=== PATIENT | female | born 1990 | race Caucasian/White ===

== ENCOUNTER 2019-12-25 14:36 | Emergency (ER) | payer OTHER, SELFPAY ==
[2019-12-25 14:42] VITALS: BP 141/86; PULSE 76; RESP 16; TEMP 36.7; O2SAT 98; BMI 26.5
[2019-12-25 17:36] VITALS: BP 109/64; PULSE 61; RESP 16; O2SAT 99
--- NOTE | 2019-12-25 18:48 | ED.WOUNDLAC ---
HPI - Wound/Laceration <JOSE Obregon - Last Filed: 12/25/19 21:37> General Chief Complaint: Wound/Laceration Stated Complaint: incision is opening back up Time Seen by Provider: 12/25/19 16:29 Source: patient Mode of arrival: Ambulatory History of Present Illness HPI narrative: 29yo female presents emergency department complaining of a small area of oozing from her suture line from a breast reduction. She states her breast reduction was done in Aug 2019 without complications. She noticed multiple keloid formations. However, she noticed a small scab along the suture line. The scab fell off and now she has noted serosanguineous drainage from the area. She denies any increased redness, significant tenderness, bleeding, purulent drainage, fevers, chills, nausea, vomiting, diarrhea, or other concerns. She denies any nipple discharge. She was worried that her new bras may have irritated the area. She is also concerned for infection. Related Data Previous Rx's Medication Instructions Recorded mupirocin 1 applictn TOP BID #22 gram 12/25/19 Allergies Allergy/AdvReac Type Severity Reaction Status Date / Time No Known Drug Allergies Allergy Verified 12/25/19 14:42 Review of Systems <JOSE Obregon - Last Filed: 12/25/19 21:37> Review of Systems Narrative: REVIEW OF SYSTEMS: GENERAL: Denies fever or chills. HENT: Denies head trauma. EYE: Denies double vision or vision loss. CARDIOVASCULAR: Denies syncope. MUSCULOSKELETAL: Denies weakness, or deformities. INTEGUMENTARY: Complains of wound under right breast, see HPI. NEURO: Denies numbness or tingling. Patient History <OJSE Obregon - Last Filed: 12/25/19 21:37> Medical History No significant medical problems (Acute) Social History Smoking Status: Never smoker Smoking Status: Never smoker alcohol intake frequency: a few times a week Substance Use Type: does not use Exam <JOSE Obregon - Last Filed: 12/25/19 21:37> Initial Vital Signs Initial Vital Signs: Vital Signs Temperature 98.0 F 12/25/19 14:42 Pulse Rate 76 12/25/19 14:42 Respiratory Rate 16 12/25/19 14:42 Blood Pressure 141/86 H 12/25/19 14:42 Pulse Oximetry 98 12/25/19 14:42 PHYSICAL EXAMINATION: GENERAL: Well groomed, alert, and cooperative. Answers questions promptly and appropriately. Vital signs noted. HENT: Normocephalic, atraumatic. RESPIRATORY: Normal respiratory rate, trachea midline, airway patent. No stridor, nasal flaring or accessory muscle use. MUSCULOSKELETAL: Normal gait and coordination. Equal tone and mass bilaterally. EXTREMITIES: CMS intact. Moves all extremities. SKIN: Warm, dry, soft, appropriate color for ethnicity. Healed suture lines noted under bilateral breast. A small <1cm ulceration noted along suture line approximately at 4:00, when you amount of serosanguineous drainage. No scab, blood, or purulent drainage noted. No surrounding erythema to the area. No significant tenderness or fluctuation with palpation. NEURO: Alert and Oriented X 3. Good coordination. PSYCH: Appropriate affect and mood. <Pato Jackson MD - Last Filed: 12/26/19 07:49> Initial Vital Signs Initial Vital Signs: Vital Signs Temperature 98.0 F 12/25/19 14:42 Pulse Rate 76 12/25/19 14:42 Respiratory Rate 16 12/25/19 14:42 Blood Pressure 141/86 H 12/25/19 14:42 Pulse Oximetry 98 12/25/19 14:42 Course <JOSE Obregon - Last Filed: 12/25/19 21:37> Orders Ordered: ED Orders 12/25/19 17:39 Wound Culture and Gram Stain Stat Vital Signs Vital signs: Vital Signs - 8 hr 12/25/19 14:42 12/25/19 17:36 Temperature 98.0 F Pulse Rate 76 61 Respiratory Rate 16 16 Blood Pressure 141/86 H 109/64 Pulse Oximetry 98 99 <Pato Jackson MD - Last Filed: 12/26/19 07:49> Orders Ordered: ED Orders 12/25/19 17:39 Wound Culture and Gram Stain Stat Vital Signs Vital signs: Vital Signs - 8 hr 12/25/19 14:42 12/25/19 17:36 Temperature 98.0 F Pulse Rate 76 61 Respiratory Rate 16 16 Blood Pressure 141/86 H 109/64 Pulse Oximetry 98 99 [facility] - Wound/Laceration <Mercy FigueroaJOSE - Last Filed: 12/25/19 21:37> Medical Records Attestation: I reviewed the patient's medical records. Lab Data Attestation: I reviewed the patient's lab results. [facility] Narrative Medical decision making narrative: 29-year-old healthy female complaining of a new wound on surgical scar after breast reduction and august 2019. Differential includes granuloma versus healing granuloma versus small superficial abrasion. Less concern for infection due to lack of surrounding erythema, purulent discharge, or significant pain. However, patient was given mupirocin to help decrease risk for infection promote healing. She was encouraged to follow up with her surgeon for further evaluation. She was given extensive education about watching for signs of infection and to be seen if these occur., patient agreed to plan of care verbalized understanding. Discharge Plan Departure Patient Disposition: Home Clinical Impression: Wound discharge Discharge Date/Time: 12/25/19 17:37 Activity Restrictions/Additional Instructions: Thank you for entrusting me with your care today. As discussed, a culture of your wound was sent to lab, you will be notified if this is positive for any bacteria. At this time, I recommend using mupirocin ointment to the area 2 to 3 times a day for the next 2 weeks. Follow up with your primary care provider or surgeon in the next 1-2 weeks for further evaluation if your symptoms continue. Return emergency department for be evaluated immediately if you develop worsening symptoms such as increased redness, purulent discharge, fevers, uncontrollable vomiting, severe pain, or other concerns. Prescriptions: New mupirocin 2 % ointment 1 applictn TOP BID Qty: 22 RF: 0
== END 2019-12-25 17:37 | disposition home or self-care (01) ==
PROVIDERS: Emergency Provider Nurse Practitioner
DX: T14.8XXA Other injury of unspecified body region, initial encounter (principal)
CPT/HCPCS: 87070; 87075; 87205; 99281; 99283